=== PATIENT | male | born 1955 | race Two or more races ===

== ENCOUNTER 2023-03-29 07:29 | Day surgery (SDC) | payer OTHER ==
[~2023-03-29] VITALS: Ht 188 cm; Wt 88.5 kg
[~2023-03-29 07:29] MED LIST: AMLO1TAB22 PO; ATOR20TA PO; CITA-73 PO; FINA5TAB4 PO; LISI10TA34 PO; OMEP20TA PO
[2023-03-29] MEDS ORDERED: fentaNYL CITRATE 100 MCG/2 ML VL ONE (08:47)
[2023-03-29] MEDS ORDERED: VERAPAMIL 2.5MG/ML INJ 2ML VIAL IV ONE (08:47)
[2023-03-29] MEDS ORDERED: ANGIOMAX 250 MG VIAL IV ONE (08:47)
[2023-03-29] MEDS ORDERED: IODIXANOL 320MG/ML 100ML BTL IV ONE (08:48)
[2023-03-29] MEDS ORDERED: MIDAZOLAM HCL 2MG/2ML 2ml VIAL (1mg/ml) ONE (08:48)
[2023-03-29] MEDS ORDERED: SODIUM CHL 0.9% 0 ML ONE (08:48)
[2023-03-29] MEDS ORDERED: LIDOCAINE 2%HCL (LOCAL ANESTH.) INJ 20ML MDV ONE (08:48)
[2023-03-29] MEDS ORDERED: HEPARIN SODIUM (PORCINE) 5000 UNITS/ML 1ML VIAL ONE (09:16)
[2023-03-29 09:23] VITALS: BP 117/78
[2023-03-29 09:43] VITALS: BP 103/65
[2023-03-29 09:58] VITALS: BP 116/77
[2023-03-29 10:13] VITALS: BP 111/74
[2023-03-29 10:58] VITALS: BP 113/74
[2023-03-29 11:13] VITALS: BP 119/74
== END 2023-03-29 11:35 | disposition home or self-care (01) ==
LOC: CATH 07:29
PROVIDERS: ATTEND Internal Medicine
DX: R94.39 Abnormal result of other cardiovascular function study (principal); I25.118 Atherosclerotic heart disease of native coronary artery with other forms of angina pectoris; I12.9 Hypertensive chronic kidney disease with stage 1 through stage 4 chronic kidney disease, or unspecified chronic kidney disease; N18.30 Chronic kidney disease, stage 3 unspecified; Z79.899 Other long term (current) drug therapy
CPT/HCPCS: 76937; 93458; C1725; C1894; J1644; J2250; J3010; Q9967; 99152